=== PATIENT | male | born 1960 | race Caucasian/White ===

== ENCOUNTER → 2021-12-21 13:45 | Outpatient (CLI) | payer OTHER, SELFPAY ==
--- NOTE | ~2021-12-21 | MR_ITS ---
EXAMINATION: MR lumbar spine wo con DATE: 12/21/2021 14:45 INDICATION: Chronic back pain, greater than 3 months duration. TECHNIQUE: Magnetic resonance imaging (MRI) of the lumbar spine was performed without intravenous con trast. Sequences included sagittal T2-weighted FSE, sagittal T2-weighted FS FSE, sagittal T1-weighted FSE, and axial T2-weighted FSE. COMPARISON: None FINDINGS: Bone alignment is normal. There is mild chronic anterior wedging of T12 and L1 vertebral aurelio dies. Intervertebral disc heights are normal. The distal spinal cord signal intensity is normal. The conus medullaris is at L1. The following disc levels are specifically discussed: L1-L2: The disc does not extend beyond the endplate margin. There is mild bilateral facet joint osteo arthritis. There is no neural foraminal stenosis. There is no central canal stenosis. L2-L3: There is a left foraminal protrusion. There is mild bilateral facet joint osteoarthritis. Ther e is mild left neural foraminal stenosis. There is no central canal stenosis. L3-L4: There is a right foraminal protrusion. There is mild bilateral facet joint osteoarthritis. The re is mild right neural foraminal stenosis. There is no central canal stenosis. L4-L5: The disc is bulging. There is mild bilateral facet joint osteoarthritis. There is mild bilater al neural foraminal stenosis. There is no central canal stenosis. L5-S1: The disc is bulging and has an annular fissure. There is moderate bilateral facet joint osteoa rthritis. There is mild bilateral neural foraminal stenosis. There is mild central canal stenosis. IMPRESSION: 1. Mild lumbar spondylosis. Reviewed, dictated and finalized at location B. IMPRESSION: 1. Mild lumbar spondylosis.
--- NOTE | ~2021-12-21 | MR_ITS ---
EXAMINATION: MR thoracic spine wo con DATE: 12/21/2021 14:34 INDICATION: Chronic back pain, greater than 3 months duration. TECHNIQUE: Magnetic resonance imaging (MRI) of the thoracic spine was performed without intravenous c ontrast. Sagittal localizer T1-weighted FSE of the cervical spine was obtained. Thoracic spine sequen melchor included sagittal T2-weighted FSE, sagittal T1-weighted FSE, sagittal T2-weighted FS FSE, and axi al T2-weighted FSE. COMPARISON: None FINDINGS: Bone alignment is normal. There is mild chronic anterior wedging of C7, T1, T7, T8, T12, an d L1 vertebral bodies. Intervertebral disc heights are normal. At T1-T2, there is a left central prot rusion with mild central canal stenosis. There is multilevel facet joint osteoarthritis. On the right , there is mild neural foraminal stenosis at T10-T11. On the left, there is severe neural foraminal s tenosis at T11-T12. The spinal cord signal intensity is normal. IMPRESSION: 1. Severe left neural foraminal stenosis at T11-T12. Otherwise mild thoracic spondylosis. Reviewed, dictated and finalized at location B. IMPRESSION: 1. Severe left neural foraminal stenosis at T11-T12. Otherwise mild thoracic sp ondylosis.
--- NOTE | ~2021-12-21 | MR_ITS ---
EXAMINATION: MR cervical spine wo con DATE: 12/21/2021 14:29 INDICATION: Chronic back pain, greater than 3 months duration. TECHNIQUE: Magnetic resonance imaging (MRI) of the cervical spine was performed without intravenous c ontrast. Sequences included sagittal T2-weighted FSE, sagittal T2-weighted FS FSE, sagittal T1-weight ed FSE, axial MERGE, and axial T2-weighted FSE. COMPARISON: None FINDINGS: Bone alignment is normal. There is mild chronic anterior wedging of C7 and T1 vertebral bod ies. Intervertebral disc heights are normal. The spinal cord signal intensity is normal. The followin g disc levels are specifically discussed: C2-C3: The disc does not extend beyond the endplate margin. There is mild bilateral uncovertebral suleiman nt osteoarthritis. There is no facet joint osteoarthritis. There is no neural foraminal stenosis. The re is no central canal stenosis. C3-C4: The disc does not extend beyond the endplate margin. There is mild bilateral uncovertebral suleiman nt osteoarthritis. There is mild right and moderate left facet joint osteoarthritis. There is no neur al foraminal stenosis. There is no central canal stenosis. C4-C5: The disc is bulging. There is mild bilateral uncovertebral joint osteoarthritis. There is no f acet joint osteoarthritis. There is mild right neural foraminal stenosis. There is mild central canal stenosis. C5-C6: The disc does not extend beyond the endplate margin. There is no uncovertebral joint osteoarth ritis. There is no facet joint osteoarthritis. There is no neural foraminal stenosis. There is no jesus tral canal stenosis. C6-C7: There is a right central extrusion. There is no uncovertebral joint osteoarthritis. There is n o facet joint osteoarthritis. There is no neural foraminal stenosis. There is mild central canal sten osis with ventral indentation of the spinal cord. C7-T1: The disc does not extend beyond the endplate margin. There is no uncovertebral joint osteoarth ritis. There is no facet joint osteoarthritis. There is no neural foraminal stenosis. There is no jesus tral canal stenosis. IMPRESSION: 1. Mild cervical spondylosis. Reviewed, dictated and finalized at location B.
== END ==
PROVIDERS: PCP Family Medicine; Visit Provider Family Medicine
DX: M47.894 Other spondylosis, thoracic region (principal); M47.892 Other spondylosis, cervical region; M47.896 Other spondylosis, lumbar region
CPT/HCPCS: 72141; 72146; 72148

== ENCOUNTER 2022-05-15 07:56 | Outpatient (CLI) | payer OTHER, SELFPAY ==
--- NOTE | ~2022-05-15 | XR_ITS ---
EXAMINATION: XR foot LT min 3V DATE: 05/15/2022 08:29 INDICATION: Left heel pain TECHNIQUE: Dorsoplantar, lateral, and 2 oblique views of the left foot were obtained. COMPARISON: None. FINDINGS: There is calcification in the distal Achilles tendon at the calcaneal insertion. A plantar calcaneal enthesophyte is noted. There is no fracture. There is mild osteoarthritis of the midfoot an d multiple interphalangeal joints. IMPRESSION: 1. Calcification of the distal Achilles tendon at the calcaneal insertion. 2. Polyarticular osteoarthritis. Reviewed, dictated and finalized at location A.
== END 2022-05-15 07:57 | disposition home or self-care (01) ==
LOC: CHSIMG 07:59
PROVIDERS: PCP Family Medicine; Visit Provider Orthopaedic Surgery
DX: M79.672 Pain in left foot (principal)
CPT/HCPCS: 73630

== ENCOUNTER 2022-05-30 09:49 | Outpatient (CLI) | payer OTHER, SELFPAY ==
--- NOTE | 2022-05-30 10:00 | ECG_ITS ---
Measurements Intervals [place] Rate: 80 P: 17 AL: 217 QRS: 11 QRSD: 99 T: 8 QT: 357 QTc: 413 Interpretive Statements SINUS RHYTHM WITH FIRST DEGREE AV BLOCK CANNOT RULE OUT INFERIOR MYOCARDIAL INFARCTION, PROBABLY OLD BORDERLINE ECG NO PREVIOUS ECG AVAILABLE FOR COMPARISON Electronically Signed On 05-31-2022 13:18:38 CDT by Jung Danielson M.D.
[2022-05-30 10:39] LABS: Anion Gap 8 mmol/L (8-16); Blood Urea Nitrogen 30 mg/dL (7-18); Calcium 9.5 mg/dL (8.5-10.1); Carbon Dioxide 29 mmol/L (21-32); Chloride 100 mmol/L (98-108); Estimated Glomerular Filt Rate 40; Glucose 135 mg/dL (70-99); Osmolality Calculated 292 mOsm/kg (285-295); Potassium 4.7 mmol/L (3.5-5.1); Sodium 137 mmol/L (136-145)
== END 2022-05-30 09:50 | disposition home or self-care (01) ==
LOC: CHSLAB 09:52
PROVIDERS: PCP Family Medicine; Visit Provider Anesthesiology
DX: E11.9 Type 2 diabetes mellitus without complications (principal)
CPT/HCPCS: 36415; 80048; 93005

== ENCOUNTER 2022-06-01 01:53 | Day surgery (SDC) | payer OTHER, SELFPAY ==
[2022-05-29 13:07] VITALS: BMI 37.7
--- NOTE | 2022-05-29 13:14 | SUR.PREOP ---
Report to the Outpatient Waiting Room, entrance under the green pavilion located off [facility], at time 0830_ on date _06/01/22 . Planned Procedure Time: _1030. . Time changes happen often and if your time is changed the preop area will call you the afternoon before. - You and your visitor will be asked to self-screen and do not enter if you have any COVID symptoms. - We encourage only one visitor and NO visitors under age 16 are allowed at this time. Your visitor will receive communication by the phone number that is given day of service. - The patient visitor is requested to social distance or may leave the building when not with patient due to restrictions. - A mask is required within the hospital. Patients may have clear liquids (water, carbonated beverages, clear teas, apple juice) until 3 hours prior to surgery with a maximum of 20 ounces. - No food from midnight until time of surgery - Infants may have breast milk until 4 hours before surgery, infant formula 6 hours prior to surgery. - Children will be allowed to drink immediately following surgery. If applicable, please bring a bottle or sippy cup to assist with drinking. Juice, water, soda, and popsicles are readily available. For infants on formula, please bring formula the day of surgery. Pacifiers are allowed. Take the following medications with a SIP of water the morning of surgery: __metoprolol Medications to discontinue per physician ___vitamin supplements Date to take last dose__05/29/22 Please no make-up, nail estonian, hairspray, perfume, deodorant, or body powder the day of surgery. No jewelry (including any body piercings) or valuables the day of surgery, leave them at home. Please take a shower or bath the night before, or the morning of, surgery with an antibacterial soap. Wear comfortable, loose fitting clothing. Children are encouraged to wear pajamas. - Jewelry must be removed prior to entering the operating room. Rings and piercings that are not removed may be cut off. - The hospital will not accept responsibility for valuables. - Please leave all valuables, including medications, at home the day of surgery. If you are going home after surgery, a licensed grab driver must drive you home. - NO public transportation without another adult. - We recommend that an adult stay with you for 24 hours following discharge. - We also recommend that you do not drive, make important decision, drink alcoholic beverages, or take any drugs that were not prescribed by your health care provider for at least 24 hours after your discharge time. For Pediatric surgeries, we recommend two adults accompany the child home. Follow any additional instructions given to you from your surgeon. If you or anyone in your household have experienced Covid symptoms in the past week, please notify your surgeon or the nurse liaison at the phone number below for possible testing. Telephone instructions given to _emily worker and asked if any additional questions and then verbalized understanding. Patient advised to call surgeon office or pre surgery nurse liaison [phone] if any additional questions.
--- NOTE | 2022-05-31 16:16 | WPDANESEPPF ---
Anes - Initial Pre Proc Eval Procedure: Operation Date: 06/01/22 10:30 Proposed Procedures p Left Achilles Reconstruction - Everton Matta MD s Excision Calcaneal Exostosis, Possible Tendon Transfer - Everton Matta MD Date/Time: 05/31/22 16:16 Surgeon: Everton Matta MD Pre Op Diagnosis: Left Achilles Tendonitis Calcaneal Exostosis Patient Data Age: 61 Gender: M Height: 1.8 m Weight: 122.72 kg Allergies Allergy/AdvReac Type Severity Reaction Status Date / Time niacin Allergy Mild hives Verified 06/01/22 08:38 Home Medications Medication Instructions Recorded Confirmed Type allopurinol 300 mg tablet 300 mg PO DAILY 05/29/22 05/29/22 History apple cider vinegar 300 mg tablet 300 mg PO DAILY 05/29/22 06/01/22 History ascorbic acid (vitamin C) 500 mg 250 mg PO DAILY 05/29/22 06/01/22 History tablet (Vitamin C) cholecalciferol (vitamin D3) 25 25 mcg PO DAILY 05/29/22 06/01/22 History mcg (1,000 unit) tablet (Vitamin D3) dulaglutide 3 mg/0.5 mL 3 mg subcut WEEKLY 05/29/22 05/29/22 History subcutaneous pen injector (Trulicity) finasteride 5 mg tablet 5 mg PO DAILY 05/29/22 05/29/22 History fluticasone propionate 50 1 spray intranasal PRN 05/29/22 05/29/22 History mcg/actuation nasal spray,suspension folic acid 20 mg capsule 20 mg PO DAILY 05/29/22 06/01/22 History furosemide 20 mg tablet 20 mg PO DAILY 05/29/22 05/29/22 History gemfibrozil 600 mg tablet 600 mg PO DAILY 05/29/22 05/29/22 History griseofulvin microsize 500 mg 500 mg PO DAILY 05/29/22 05/29/22 History tablet insulin aspart U-100 100 unit/mL 10 unit subcut BID 05/29/22 05/29/22 History (3 mL) subcutaneous pen (Novolog Flexpen U-100 Insulin aspart) insulin degludec 100 unit/mL (3 30 unit subcut BID 05/29/22 05/29/22 History mL) subcutaneous pen (Tresiba FlexTouch U-100 insulin) lovastatin 40 mg tablet 40 mg PO DAILY 05/29/22 05/29/22 History metformin 1,000 mg tablet 1,000 mg PO BID 05/29/22 05/29/22 History metoprolol succinate 200 mg 200 mg PO DAILY 05/29/22 05/29/22 History tablet,extended release 24 hr omega-3 fatty acids-vitamin E 1 cap PO DAILY 05/29/22 06/01/22 History 1,000 mg capsule pioglitazone 30 mg tablet 30 mg PO DAILY 05/29/22 05/29/22 History valsartan 160 1 tablet PO DAILY 05/29/22 05/29/22 History mg-hydrochlorothiazide 12.5 mg tablet Patient hx anesthesia problems: none Family hx anesthesia problems: none Results Review: All pre-operative results and documents have been reviewed as part of the pre-operative evaluation. [facility] Past Medical History Medical History (Updated 05/31/22 @ 16:16 by Jomar Skinner MD) Achilles tendinitis of left lower extremity Diabetes Exostosis of left posterior calcaneus HTN (hypertension) Hyperlipidemia Obesity Vertigo Surgical History Surgical History H/O foot surgery Right heel [address] Chuck Leung in [place] History of knee surgery ACL [address] Becerril Meniscus [address] Becerril Family History Family History Other Arthritis Carcinoma of colon Diabetes mellitus HLD (hyperlipidemia) Hypertension Social History Social History Smoking status: Never smoker Alcohol intake: current Substance use type: does not use Living arrangements: with family Gender identity (if verbalized by the patient): Male Spiritual care concerns: No Anes - Eval Final PreProcedure Day of Procedure 05/31/22 16:16 Patient weight: obese Heart: regular rate and rhythm Lungs: clear to auscultation and normal air movement Airway: Mallampati scale class II Neurological: alert and oriented Last oral intake: >/= 8 hours ASA classification: III Emergent: no Anesthetic plan: proceed Anesthesia type and monitoring: general LMA and ETT R
[2022-06-01] VITALS (9 sets, daily range): BP systolic 116–149; BP diastolic 66–80; PULSE 70–84; RESP 10–16; TEMP 36.1–36.4; O2SAT 99–100; BMI 37.0
--- NOTE | ~2022-06-01 | XR_ITS ---
EXAMINATION: XR surgery orthopedic DATE: 06/01/2022 11:49 INDICATION: Excision of a left calcaneal exostosis TECHNIQUE: 2 fluoroscopic images of the left calcaneus were obtained during procedure performed by Dr Mariel Matta. Radiologist was not present for the imaging or procedure. The amount of fluoroscopy time u sed during this procedure was 0.1 minutes. COMPARISON: None. FINDINGS: Osteotomy along the cephalad aspect of the posterior tuberosity of the left calcaneus. Small plantar calcaneal spur. No fracture. Profiled portion of the joint spaces appear normal. Soft tissue defect w ith retractors overlying the site of the osteotomy. IMPRESSION: 1. Fluoroscopy utilized during osteotomy at the cephalad aspect of the posterior tuberosity of the le ft calcaneus. Reviewed, dictated and finalized at location A. IMPRESSION: 1. Fluoroscopy utilized during osteotomy at the cephalad aspect of the posterio r tuberosity of the left calcaneus.
--- NOTE | 2022-06-01 07:37 | WPDHPUPDATE1 ---
History and Physical Update Update Date/Time: 06/01/22 07:37 History and Physical has been reviewed, including an updated exam of the patient. There are NO changes in the patient's condition. Risks, benefits, and alternatives have been discussed and questions answered. Patient agrees to proceed with procedure.
[2022-06-01] MEDS: LACTATED RINGERS 1,000 ML 30 ML IV CONT (09:25)
[2022-06-01] MEDS: ACETAMINOPHEN 500 MG TABLET 1000 MG PO (09:29)
[2022-06-01] MEDS: KETOROLAC 15 MG/ML VIAL (*BKC) IV PUSH (09:29)
[2022-06-01 09:48] LABS: Glucose Point of Care 112 mg/dl (65-105)
--- NOTE | 2022-06-01 10:20 | SUR.PREOP ---
1020- Notified patient Luis procedure start time will be delayed and patient verbalized understanding.
[2022-06-01] MEDS: ceFAZolin 3 GM/D5W 100 ML 100 ML IVPB (10:59)
[2022-06-01 12:49] LABS: Glucose Point of Care 105 mg/dl (65-105)
[2022-06-01] MEDS: fentaNYL CITRATE INJ (*CRX) 100 MCG/2 ML VIAL 25 MCG IV PUSH ×2 (12:59→13:02)
--- NOTE | 2022-06-01 13:01 | W.PM.PROC2 ---
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 Failed conservative tx. Description of Procedure Patient identified in the preoperative holding. Informed consent given. Operative extremity marked. Patient received intravenous antibiotics. Patient brought to the operating room where underwent general anesthetic by anesthesia team. Positioned prone on operating room table. Care taken to carefully secure and protect the head neck, and pad the bony prominences, and position the shoulders and arms. Time-out performed confirming the patient, site of the surgery and the plan. Left lower extremity prepped draped usual sterile surgical fashion using ChloraPrep skin solution. Foot and ankle exsanguinated and thigh tourniquet inflated to 250 mmHg. Direct posterior midline incision made with 15 blade knife over the distal Achilles tendon and posterior calcaneus. Hemostasis achieved with electrocautery. Full-thickness skin flaps developed medially and laterally including the paratenon over the Achilles tendon. Distal Achilles tendon noted to be degenerative with calcifications present. Fifteen blade knife used to release the Achilles tendon off the distal calcaneus with a midline split. Calcifications and degenerative portions sharply excised. Sufficient amount of normal Achilles tendon remaining for reconstruction. Osteotome used to resect the posterior calcaneal exostosis and osteophytes. Edges smoothed with a rongeur. Image intensification brought in and confirmed resection of the posterior exostosis. Wound thoroughly irrigated antibiotic solution. Retrocalcaneal bursa also sharply excised and bleeding points coagulated. Attention then turned to the Achilles tendon. Reconstruction achieved with the Arthrex Speed Bridge. 3.5 mm drill holes placed in posterior calcaneus and PushLock anchors placed with fiber tape. Fiber tape then delivered through the medial and lateral end of the Achilles tendon. Repair completed by passing the FiberTape ends through 4.75 mm SwiveLock anchors placed distal to the Achilles tendon insertion. Good repair noted. Midline split repaired with 0 Vicryl interrupted suture. Wound thoroughly irrigated antibiotic solution. Paratenon then repaired with 3 0 Monocryl running suture. Deep soft tissue repaired with 2 Vicryl interrupted suture. Skin approximated with 4 O nylon running suture. Sterile dressing applied. Bulky dressing and splint applied after releasing the tourniquet. The patient was then woken from anesthesia, extubated and taken to the recovery room in stable condition. All sponge, needle, instrument counts were correct at the end of the case. Implants Arthrex speed bridge Estimated Blood Loss -5.0 Tourniquet Time 65 Drains No Packing No Pathology None sent Complications None Condition Stable Disposition PACU
[2022-06-01] MEDS: oxyCODONE HCL (*CRX) 5 MG TAB IR PO (14:34)
== END 2022-06-01 14:55 | disposition home or self-care (01) ==
PROVIDERS: PCP Family Medicine; Visit Provider Orthopaedic Surgery
PROC: (CPT 27650; principal; 2022-06-01 10:30)
PROC: (CPT 28750; 2022-06-01 10:30)
DX: M76.62 Achilles tendinitis, left leg (principal); M77.32 Calcaneal spur, left foot; E11.9 Type 2 diabetes mellitus without complications; I10 Essential (primary) hypertension; E78.5 Hyperlipidemia, unspecified; E66.9 Obesity, unspecified; Z68.37 Body mass index [BMI] 37.0-37.9, adult; Z79.899 Other long term (current) drug therapy; Z79.84 Long term (current) use of oral hypoglycemic drugs; Z79.4 Long term (current) use of insulin
CPT/HCPCS: 27650; 28120; 82948; 99199; A9270; C1713; J0330; J0690; J1100; J1170; J1885; J2250; J2370; J2405; J2704; J3010; J7120

== ENCOUNTER 2023-07-06 05:41 | Emergency (ER) | payer BC, SELFPAY ==
--- NOTE | ~2023-07-06 | CT_ITS ---
CT of the Abdomen and Pelvis: Indication: Abdominal pain Technique: 2.5 mm axial scans were obtained through the abdomen and pelvis following intravenous adm inistration of 100 cc of Omnipaque 350. Dose reduction technique was used on this scan by utilizing a utomated exposure control and iterative reconstruction technique. The dose-length product (DLP) was 1 493.33 mGy-cm. Findings: Scans through the lung bases are unremarkable. Multiple small hepatic cysts are present. There is a somewhat nodular contour of the liver, suggestiv e of cirrhotic change. The spleen, pancreas, gallbladder, adrenals and kidneys are within normal limi ts. No evidence of aortic aneurysm. No lymphadenopathy. No bowel obstruction or bowel wall thickening. There is no evidence to suggest acute appendicitis. Images through the pelvis were performed. Urinary bladder unremarkable. Prostate gland mildly enlarge d. No ascites. Impression: Probable early cirrhotic change of the liver. Correlate clinically and with LFTs. Reviewed, dictated and finalized at [facility]. [employer] Impression: Probable early cirrhotic change of the liver. Correlate clinically and with LFT s.
[2023-07-06 05:49] VITALS: BP 164/85; PULSE 65; RESP 20; TEMP 36.4; O2SAT 98
--- NOTE | 2023-07-06 06:11 | ECG_ITS ---
Measurements Intervals [place] Rate: 62 P: 25 WV: 190 QRS: 26 QRSD: 106 T: 32 QT: 403 QTc: 411 Interpretive Statements SINUS RHYTHM NORMAL ELECTROCARDIOGRAM COMPARED TO ECG 05/30/2022 10:06:54 NO SIGNIFICANT CHANGES Electronically Signed On 07-06-2023 13:44:30 RUBBER TIRE CURER by Flo Marc M.D.
--- NOTE | 2023-07-06 06:13 | ED.ABDPAIN ---
HPI - Abdominal Pain General Chief Complaint: Abdominal Pain Stated Complaint: abdominal pain Time Seen by Provider: 07/06/23 07:53 Source: patient Mode of arrival: ambulatory Limitations: no limitations History of Present Illness HPI narrative: this is 62-year-old male that has a history of diabetes hypertension hyperlipidemia has a history of kidney stones, presents with a 4 day history of left lower abdominal pain with some no hematuria no dysuria no nausea vomiting no diarrhea constipation, patient denies chest pain or shortness of breath. Patient did try [id number] Tylenol with minimal relief. Currently there is no fever chills does have a history of kidney stones but feels this is different than his typical kidney stone pain. No lower back pain no radiculopathy no radiation into his left hip oral MD elicited complaint: abdominal pain Onset (ago): day(s) Pain Consistency: constant Location: LLQ Severity: severe Pain scale (0-10): 10 Quality: stabbing Radiation: L flank Exacerbating factors: movement Relieving factors: nothing Associated symptoms: denies other symptoms Related Data Home Medications Medication Instructions Recorded Confirmed allopurinol 300 mg tablet 300 mg PO DAILY 05/29/22 07/06/23 apple cider vinegar 300 mg tablet 300 mg PO DAILY 05/29/22 07/06/23 ascorbic acid (vitamin C) 500 mg 250 mg PO DAILY 05/29/22 07/06/23 tablet (Vitamin C) cholecalciferol (vitamin D3) 25 25 mcg PO DAILY 05/29/22 07/06/23 mcg (1,000 unit) tablet (Vitamin D3) dulaglutide 3 mg/0.5 mL 3 mg subcut WEEKLY 05/29/22 07/06/23 subcutaneous pen injector (Trulicity) finasteride 5 mg tablet 5 mg PO DAILY 05/29/22 07/06/23 fluticasone propionate 50 1 spray intranasal PRN 05/29/22 07/06/23 mcg/actuation nasal spray,suspension folic acid 20 mg capsule 20 mg PO DAILY 05/29/22 07/06/23 furosemide 20 mg tablet 20 mg PO DAILY 05/29/22 07/06/23 gemfibrozil 600 mg tablet 600 mg PO DAILY 05/29/22 07/06/23 griseofulvin microsize 500 mg 500 mg PO DAILY 05/29/22 07/06/23 tablet insulin aspart U-100 100 unit/mL 10 unit subcut BID 05/29/22 07/06/23 (3 mL) subcutaneous pen (Novolog FlexPen U-100 Insulin aspart) insulin degludec 100 unit/mL (3 30 unit subcut BID 05/29/22 07/06/23 mL) subcutaneous pen (Tresiba FlexTouch U-100 insulin) lovastatin 40 mg tablet 40 mg PO DAILY 05/29/22 07/06/23 metformin 1,000 mg tablet 1,000 mg PO BID 05/29/22 07/06/23 metoprolol succinate 200 mg 200 mg PO DAILY 05/29/22 07/06/23 tablet,extended release 24 hr omega-3 fatty acids-vitamin E 1 cap PO DAILY 05/29/22 07/06/23 1,000 mg capsule pioglitazone 30 mg tablet 30 mg PO DAILY 05/29/22 07/06/23 valsartan 160 1 tablet PO DAILY 05/29/22 07/06/23 mg-hydrochlorothiazide 12.5 mg tablet gabapentin 300 mg capsule 300 mg PO TID 07/06/23 07/06/23 meclizine 25 mg tablet 25 mg PO BID 07/06/23 07/06/23 Allergies Allergy/AdvReac Type Severity Reaction Status Date / Time niacin Allergy Mild hives Verified 07/06/23 05:49 Review of Systems Review of Systems: All systems reviewed & are unremarkable except as noted in HPI and below PMFSH Past Medical History Medical History Achilles tendinitis of left lower extremity Diabetes Encounter for postoperative care Exostosis of left posterior calcaneus HTN (hypertension) Hyperlipidemia Obesity Retrocalcaneal bursitis Vertigo Wound dehiscence, surgical Surgical History Surgical History H/O foot surgery Right heel [address] Chuck Leung in [place] History of Achilles tendon repair Achilles repair DOS:06/01/2022 History of knee surgery ACL [address] Becerril Meniscus [address] Becerril Family History Family History Other Arthritis Carcinoma of colon Diabetes mellitus HLD (hyperlipidemia) Hypert
[2023-07-06] MEDS: MORPHINE SULFATE (*CRX) 4 MG/ML INJ IV PUSH (06:25)
[2023-07-06] MEDS: SODIUM CHLORIDE 0.9% IV 1,000 ML 999 ML IV CONT (06:25)
[2023-07-06 06:29] LABS: Hematocrit 36.5 % (40.0-54.0); Hemoglobin 11.2 g/dL (14.0-18.0); Mean Corpuscular HGB Conc 30.7 g/dL (32.0-36.0); Mean Corpuscular Hemoglobin 28.9 pg (27.0-31.0); Mean Corpuscular Volume 94.1 fL (78.0-102.0); Mean Platelet Volume 10.6 fl (8.7-11.0); Platelet Count Result 270 K/mm3 (150-420); Red Blood Count 3.88 M/mm3 (4.70-6.10); Red Cell Distribution Width 14.5 % (11.6-14.4); White Blood Count 5.9 K/mm3 (4.8-10.8)
[2023-07-06 06:43] LABS: INR 1.1; Partial Thromboplastin Time 28.2 SEC (23.90-30.70); Prothrombin Time 11.8 Seconds (9.50-12.10)
[2023-07-06 06:44] LABS: Band Neutrophils Percent 0 % (0-6); Basophils Percent Manual 0 % (0-1); Eosinophils Percent Manual 12 % (1-6); Lymphocytes Absolute Manual 1.35 K/mm3 (1.1-4.5); Lymphocytes Percent Manual 23 % (18-44); Monocytes Absolute Manual 0.35 K/mm3 (0.1-0.90); Monocytes Percent Manual 6 % (3-9); Neutrophils Absolute Manual 3.48 K/mm3 (1.3-6.7); Neutrophils Percent Manual 59 % (46-73); Platelet Estimate Adequate (Adequate); Total Cells Counted 100
[2023-07-06 06:46] LABS: Lactic Acid Reflex 1.4 mmol/L (0.4-2.0)
[2023-07-06 06:47] LABS: Appearance Urine Clear (Clear); Bilirubin Urine Negative (Negative); Blood Urine 1+ (Negative); Color Urine Light Yellow (Yellow); Glucose Urine UA Negative (Negative); Ketones Urine Negative (Negative); Leukocyte Esterase Ur Negative LEU/UL (Negative); Nitrate Urine Negative (Negative); Protein Urine 1+ (Negative); Urobilinogen Urine 0.2 mg/dL (0.2-1.0); pH Urine 5.5 (5.0-8.0)
[2023-07-06 06:51] LABS: Alanine Aminotransferase 29 U/L (16-63); Albumin Level 3.6 g/dL (3.4-5.0); Alkaline Phosphatase 94 U/L (46-116); Anion Gap 9 mmol/L (8-16); Aspartate Amino Transferase 22 U/L (15-37); Bilirubin,Total 0.2 mg/dL (0.00-1.00); Blood Urea Nitrogen 37 mg/dL (7-18); Calcium 9.3 mg/dL (8.5-10.1); Carbon Dioxide 27 mmol/L (21-32); Chloride 102 mmol/L (98-108); Estimated CRCL calculation 52 ml/min; Estimated Glomerular Filt Rate 39; Glucose 148 mg/dL (70-99); Lipase 64 U/L (16-77); NT Pro B Type Natriuretic Pept 103 pg/mL (0-125); Osmolality Calculated 297 mOsm/kg (285-295); Potassium 4.9 mmol/L (3.5-5.1); Sodium 138 mmol/L (136-145); Total Protein 7.9 g/dL (6.4-8.2); Troponin I 6.3 ng/L (0.00-60.4)
[2023-07-06 06:51] LABS: Add Urine Microscopic? YES; Bacteria Urine Rare /hpf; WBC Urine None seen /hpf (0-3)
[2023-07-06 06:52] LABS: CRP < 0.5 mg/dL (0.0-0.9)
--- NOTE | 2023-07-06 07:23 | PC.NURSE ---
0700 report from yuval valdes. resumed pt care at this time. pt to xray dept for ct. 0715 pt return to room. call jimenez in reach. no needs at this time. awaiting ct report. lights out for comfort.
[2023-07-06 07:32] VITALS: BP 154/75; PULSE 78; RESP 18; TEMP 35.9; O2SAT 98
--- NOTE | 2023-07-06 07:54 | ED.ABDPAIN ---
HPI - Abdominal Pain General Chief Complaint: Abdominal Pain Stated Complaint: abdominal pain Time Seen by Provider: 07/06/23 07:53 Source: patient Mode of arrival: ambulatory Limitations: no limitations History of Present Illness HPI narrative: Patient is a 62-year-old male with a significant past medical history that presents today for left-sided abdominal pain. He states he has left-sided abdominal pain radiates the back. He states that the pains were gone for about 4 days now. He states this is more for back now. He has had history of kidney stones in the past. He said he took OTC medications with no relief. He continues to have the pain in the left side abdominal area. He denies any constipation. Denies any nausea vomiting. MD elicited complaint: abdominal pain Onset (ago): day(s) Pain Consistency: constant Location: LLQ Severity: severe Pain scale (0-10): 10 Quality: stabbing Radiation: L flank Exacerbating factors: movement Relieving factors: nothing Associated symptoms: denies other symptoms Related Data Home Medications Medication Instructions Recorded Confirmed allopurinol 300 mg tablet 300 mg PO DAILY 05/29/22 07/06/23 apple cider vinegar 300 mg tablet 300 mg PO DAILY 05/29/22 07/06/23 ascorbic acid (vitamin C) 500 mg 250 mg PO DAILY 05/29/22 07/06/23 tablet (Vitamin C) cholecalciferol (vitamin D3) 25 25 mcg PO DAILY 05/29/22 07/06/23 mcg (1,000 unit) tablet (Vitamin D3) dulaglutide 3 mg/0.5 mL 3 mg subcut WEEKLY 05/29/22 07/06/23 subcutaneous pen injector (Trulicity) finasteride 5 mg tablet 5 mg PO DAILY 05/29/22 07/06/23 fluticasone propionate 50 1 spray intranasal PRN 05/29/22 07/06/23 mcg/actuation nasal spray,suspension folic acid 20 mg capsule 20 mg PO DAILY 05/29/22 07/06/23 furosemide 20 mg tablet 20 mg PO DAILY 05/29/22 07/06/23 gemfibrozil 600 mg tablet 600 mg PO DAILY 05/29/22 07/06/23 griseofulvin microsize 500 mg 500 mg PO DAILY 05/29/22 07/06/23 tablet insulin aspart U-100 100 unit/mL 10 unit subcut BID 10/24/22 12/01/23 (3 mL) subcutaneous pen (Novolog FlexPen U-100 Insulin aspart) insulin degludec 100 unit/mL (3 30 unit subcut BID 05/29/22 07/06/23 mL) subcutaneous pen (Tresiba FlexTouch U-100 insulin) lovastatin 40 mg tablet 40 mg PO DAILY 05/29/22 07/06/23 metformin 1,000 mg tablet 1,000 mg PO BID 05/29/22 07/06/23 metoprolol succinate 200 mg 200 mg PO DAILY 05/29/22 07/06/23 tablet,extended release 24 hr omega-3 fatty acids-vitamin E 1 cap PO DAILY 05/29/22 07/06/23 1,000 mg capsule pioglitazone 30 mg tablet 30 mg PO DAILY 05/29/22 07/06/23 valsartan 160 1 tablet PO DAILY 05/29/22 07/06/23 mg-hydrochlorothiazide 12.5 mg tablet gabapentin 300 mg capsule 300 mg PO TID 07/06/23 07/06/23 meclizine 25 mg tablet 25 mg PO BID 07/06/23 07/06/23 Allergies Allergy/AdvReac Type Severity Reaction Status Date / Time niacin Allergy Mild hives Verified 07/06/23 05:49 Review of Systems Review of Systems: All systems reviewed & are unremarkable except as noted in HPI and below Constitutional: Constitutional: Reports as per HPI Eyes: Eyes: Reports no additional eye complaints ENT: Reports system reviewed and no additional complaints, except as documented Cardiovascular: Cardiovascular: Reports no additional cardiovascular complaints Respiratory: Respiratory: Reports no additional respiratory complaints Gastrointestinal: Gastrointestinal: Reports abdominal pain Musculoskeletal: Musculoskeletal: Reports myalgias Integumentary/Breasts: Skin/Breast: Reports system reviewed and no additional complaints, except as docu Neurologic: Reports system reviewed and no additional complaints, except as documented Psychiatric: Psychiatric: Reports no additional psychiatric complaints Endocrine: Endocrine: Reports no additional endocrine complaints PMFSH Past Medical History Medical History Ach
--- NOTE | 2023-07-06 08:08 | PC.NURSE ---
0805 son in law called for ride home
== END 2023-07-06 08:10 | disposition home or self-care (01) ==
PROVIDERS: Emergency Medicine; Emergency Provider Family Medicine
DX: K52.9 Noninfective gastroenteritis and colitis, unspecified (principal); N15.9 Renal tubulo-interstitial disease, unspecified; E11.9 Type 2 diabetes mellitus without complications; I10 Essential (primary) hypertension; E78.5 Hyperlipidemia, unspecified; Z79.899 Other long term (current) drug therapy; Z79.4 Long term (current) use of insulin
CPT/HCPCS: 36415; 74177; 80053; 81001; 83605; 83690; 83880; 84484; 85025; 85610; 85730; 86140; 93005; 96361; 96374; 99284; J2270; J7030; Q9967